=== PATIENT | female | born 1985 | race Caucasian/White ===

== ENCOUNTER → 2017-09-03 | Outpatient (REF) | payer OTHER ==
[2017-09-03 16:19] LABS: BASO # 0.1 10^3/uL (0.0-0.2); BASO % 0.9 % (0.0-1.0); EOS # 0.4 10^3/uL (0.0-0.50); EOS % 3.2 % (0.0-3.0); IMMATURE GRANULOCYTE % 0.3 % (0-0); LYMPH # 2.8 10^3/uL (1.5-4.5); LYMPH % 24.5 % (24.0-44.0); MEAN CORPUSCULAR HGB CONC 34.3 g/dl (32.0-36.5); MEAN CORPUSCULAR VOLUME 93.2 fl (80.0-96.0); MONO # 1.1 10^3/uL (0.0-0.8); MONO % 9.3 % (0.0-5.0); NEUTROPHILS % 61.8 % (36.0-66.0); PLATELET COUNT, AUTOMATED 381 10^3/uL (150-450); RED CELL DISTRIBUTION WIDTH 11.5 % (11.5-14.5); WHITE BLOOD COUNT 11.2 10^3/uL (4.0-10.0)
[2017-09-03 16:36] LABS: ALBUMIN 3.7 GM/DL (3.2-5.2); ALBUMIN/GLOBULIN RATIO 1.28 (1.00-1.93); ALKALINE PHOSPHATASE 48 U/L (45-117); ALT/SGPT 20 U/L (12-78); ANION GAP 7 MEQ/L (8-16); AST/SGOT 10 U/L (7-37); BILIRUBIN,TOTAL 0.2 MG/DL (0.2-1.0); BLOOD UREA NITROGEN 15 MG/DL (7-18); CALCIUM LEVEL 8.8 MG/DL (8.5-10.1); CARBON DIOXIDE LEVEL 29 MEQ/L (21-32); CHLORIDE LEVEL 99 MEQ/L (98-107); GLOMERULAR FILTRATION RATE > 60.0 (>60); GLUCOSE, FASTING 212 MG/DL (70-105); POTASSIUM SERUM 4.3 MEQ/L (3.5-5.1); SODIUM LEVEL 135 MEQ/L (136-145); TOTAL PROTEIN 6.6 GM/DL (6.4-8.2)
[2017-09-04 15:38] LABS: CREATININE, SERUM 1.1 MG/DL (0.6-1.0); TOTAL VOLUME, URINE 4200 ML
[2017-09-04 16:57] LABS: CREATININE CLEARANCE, URINE 101.8 ML/MIN (75-115)
[2017-09-05 11:08] LABS: HBsAg Prenatal NEGATIVE (NEGATIVE)
== END ==
LOC: M LABDRAW1 15:32
PROVIDERS: ATTEND Obstetrics & Gynecology
DX: Z36.89 Encounter for other specified antenatal screening (principal); Z3A.08 8 weeks gestation of pregnancy

== ENCOUNTER → 2017-09-11 | Outpatient (REF) | payer OTHER | LOC: M LAB REF 17:03 | PROVIDERS: ATTEND Advanced Practice Midwife | DX: Z34.81 Encounter for supervision of other normal pregnancy, first trimester (principal) ==

== ENCOUNTER → 2017-12-24 | Outpatient (REF) | payer OTHER ==
[2017-12-24 13:53] LABS: HEMATOCRIT 36.7 % (36.0-47.0); HEMOGLOBIN 12.2 g/dl (12.0-16.0); MEAN CORPUSCULAR HEMOGLOBIN 30.7 pg (27.0-33.0); MEAN CORPUSCULAR HGB CONC 33.2 g/dl (32.0-36.5); MEAN CORPUSCULAR VOLUME 92.4 fl (80.0-96.0); PLATELET COUNT, AUTOMATED 308 10^3/uL (150-450); RED BLOOD COUNT 3.97 10^6/uL (4.00-5.40); RED CELL DISTRIBUTION WIDTH 12.2 % (11.5-14.5); WHITE BLOOD COUNT 12.8 10^3/uL (4.0-10.0)
[2017-12-24 14:10] LABS: ESTIMATED AVERAGE GLUCOSE 151 MG/DL (60-110); HEMOGLOBIN A1c 6.9 %
== END ==
LOC: M LABDRAW1 09:06
DX: O24.012 Pre-existing type 1 diabetes mellitus, in pregnancy, second trimester (principal); Z3A.00 Weeks of gestation of pregnancy not specified

== ENCOUNTER → 2018-01-01 | Outpatient (REF) | payer OTHER ==
[2018-01-01 13:57] LABS: APPEARANCE, URINE MANUAL CLEAR (CLEAR); BILIRUBIN, URINE MANUAL NEGATIVE (NEGATIVE); COLOR, URINE MANUAL YELLOW (YELLOW); GLUCOSE, URINE (UA) MANUAL 4+(1000 MG/DL) mg/dL (NEGATIVE); KETONE, URINE MANUAL NEGATIVE (NEGATIVE); NITRITE, URINE MANUAL NEGATIVE (NEGATIVE); PROTEIN, URINE MANUAL NEGATIVE (NEGATIVE); SPECIFIC GRAVITY,URINE MANUAL 1.005 (1.002-1.035); UROBILINOGEN, URINE MANUAL NORMAL (NORMAL)
[2018-01-01 13:58] LABS: BLOOD URINE MANUAL NEGATIVE (NEGATIVE); LEUKOCYTE ESTERASE, URINE MAN NEGATIVE (NEGATIVE); MICROSCOPIC INDICATED? MAN YES (NO)
[2018-01-01 14:06] LABS: RBC, URINE NONE SEEN /hpf (0-3); SQUAMOUS EPITHELIAL CELL URINE SMALL AMOUNT /hpf (SMALL AMT)
[2018-01-01 14:07] LABS: BACTERIA, URINE SMALL AMOUNT; HYALINE CAST, URINE NONE SEEN /lpf (0-1); MICROSCOPIC EXAM PERFORMED
== END ==
LOC: M LAB REF 13:25
DX: O24.012 Pre-existing type 1 diabetes mellitus, in pregnancy, second trimester (principal)

== ENCOUNTER 2018-02-27 12:16 | Outpatient (CLI) | payer OTHER ==
[2018-02-27 13:46] LABS: BEDSIDE GLUCOSE 93 MG/DL (70-105)
== END 2018-02-27 15:20 | disposition home or self-care (01) ==
LOC: M LDO 12:16
DX: O24.913 Unspecified diabetes mellitus in pregnancy, third trimester (principal); O36.8331 Maternal care for abnormalities of the fetal heart rate or rhythm, third trimester, fetus 1; Z3A.33 33 weeks gestation of pregnancy
CPT/HCPCS: 76815

== ENCOUNTER → 2018-03-11 | Outpatient (REF) | payer OTHER | LOC: M LAB REF 13:30 | DX: Z3A.35 35 weeks gestation of pregnancy (principal) ==

== ENCOUNTER 2018-03-14 11:02 | Inpatient (IN) | payer OTHER ==
[2018-03-14] MEDS ORDERED: LR 1,000 ML IV ×2 (11:55→20:11)
[2018-03-14 12:25] LABS: BEDSIDE GLUCOSE 97 MG/DL (70-105)
[2018-03-14 12:40] LABS: HEMATOCRIT 37.7 % (36.0-47.0); HEMOGLOBIN 12.8 g/dl (12.0-15.5); MEAN CORPUSCULAR HEMOGLOBIN 30.5 pg (27.0-33.0); PLATELET COUNT, AUTOMATED 261 10^3/uL (150-450); RED BLOOD COUNT 4.19 10^6/uL (4.00-5.40); RED CELL DISTRIBUTION WIDTH 12.3 % (11.5-14.5); WHITE BLOOD COUNT 13.4 10^3/uL (4.0-10.0)
[2018-03-14] MEDS ORDERED: INSULIN IV RATE CHANGE DOCUMENTATION ML/HR XX (12:45)
[2018-03-14] MEDS ORDERED: D5W/0.9% SODIUM CHLORIDE 1,000 ML IV (13:00)
[2018-03-14] MEDS: miSOPROStol 50 MCG 1/2 TAB (S0191) SL ×2 (13:24→17:35)
[2018-03-14] MEDS: NS 1,000 ML IV ×3 (13:24→22:45)
[2018-03-14 13:42] LABS: BEDSIDE GLUCOSE 59 MG/DL (70-105)
[2018-03-14 13:46] LABS: BEDSIDE GLUCOSE 54 MG/DL (70-105)
[2018-03-14 14:15] LABS: BEDSIDE GLUCOSE 98 MG/DL (70-105)
[2018-03-14 15:16] LABS: BEDSIDE GLUCOSE 80 MG/DL (70-105)
[2018-03-14] MEDS: PENICILLIN G POTASSIUM IV 5 MU in D5W MINI-BAG PLUS 100 ML IV (16:21)
[2018-03-14 16:42] LABS: BEDSIDE GLUCOSE 73 MG/DL (70-105)
[2018-03-14 17:12] LABS: BEDSIDE GLUCOSE 81 MG/DL (70-105)
[2018-03-14 18:07] LABS: BEDSIDE GLUCOSE 92 MG/DL (70-105)
[2018-03-14] MEDS ORDERED: TERBUTALINE SULFATE 1 MG/ML VIAL (J3105) As Ordered (18:42)
[2018-03-14] MEDS ORDERED: BICITRA 30ML SOLN UDC As Ordered (18:46)
[2018-03-14] MEDS ORDERED: ceFAZolin 1GM INJ (J0690 PER 500MG) As Ordered (18:46)
[2018-03-14] MEDS: BICITRA 30ML SOLN UDC PO (18:56)
[2018-03-14] MEDS: TERBUTALINE SULFATE 1 MG/ML VIAL (J3105) SC (18:57)
[2018-03-14] MEDS ORDERED: fentaNYL 100 MCG/2 ML INJECTION (J3010) As Ordered (19:06)
[2018-03-14] MEDS ORDERED: MORPHINE PRES-FREE INJ 10 MG/10 ML VIAL (J2274) As Ordered (19:06)
[2018-03-14] MEDS ORDERED: NALBUPHINE HCL 10 MG/ML AMP (J2300) IV (19:11)
[2018-03-14] MEDS ORDERED: METOCLOPRAMIDE INJ 10MG/2ML VIAL (J2765) IV ×2 (19:11→21:15)
[2018-03-14] MEDS ORDERED: ONDANSETRON 4MG/2ML VIAL (J2405) IV ×3 (19:11→21:15)
[2018-03-14] MEDS ORDERED: NALOXONE INJ 0.4 MG/1 ML VIAL (J2310) IV ×2 (19:11)
[2018-03-14] MEDS ORDERED: OXYTOCIN INJ 10 UNITS/ML VIAL (J2590) As Ordered ×4 (19:31→19:32)
[2018-03-14] MEDS ORDERED: PHENYLephrine HCL 500 MCG/5 ML (100MCG/ML) SYRINGE (J2370) As Ordered (19:31)
[2018-03-14] MEDS ORDERED: ONDANSETRON 4MG/2ML VIAL (J2405) As Ordered (19:32)
[2018-03-14] MEDS ORDERED: KETOROLAC 60 MG/2 ML VIAL (J1885) As Ordered (19:45)
[2018-03-14] MEDS ORDERED: PENICILLIN G POTASSIUM IV 2.5 MU in APPROPRIATE DILUENT 1 EA IV (20:00)
[2018-03-14] MEDS ORDERED: PERCOCET 5MG/325MG TAB PO (20:15)
[2018-03-14 20:21] LABS: BEDSIDE GLUCOSE 193 MG/DL (70-105)
[2018-03-14] MEDS: INSULIN HUMAN REGULAR 100 UNITS in NS 99 ML IV (20:37)
[2018-03-14] MEDS ORDERED: fentaNYL 100 MCG/2 ML INJECTION (J3010) IV (21:15)
[2018-03-14] MEDS: ceFAZolin SOD 1 GM in D5W MINI-BAG PLUS 50 ML IV (21:45)
[2018-03-14] MEDS: LR 1,000 ML IV (21:45)
[2018-03-14 21:55] LABS: BEDSIDE GLUCOSE 150 MG/DL (70-105)
[2018-03-14] MEDS ORDERED: GLUCOSE 4 GM CHEW TABLET PO (22:15)
[2018-03-14] MEDS ORDERED: GLUCAGON FOR INJ 1 MG VIAL (J1610) SC (22:15)
[2018-03-14] MEDS ORDERED: DEXTROSE 50% 50 ML SYRINGE IV (22:15)
[2018-03-14] MEDS: RHOGAM 300 MCG (1500 IU) INJ (J2790) IM (22:23)
[2018-03-14] MEDS: MEASLES,MUMPS,RUBELLA VACCINE INJ (MMR-II) (90707) SC (22:23)
[2018-03-14 23:54] LABS: BEDSIDE GLUCOSE 151 MG/DL (70-105)
[2018-03-15] MEDS: KETOROLAC 30 MG/ML VIAL (J1885) IV ×3 (01:40→15:06)
[2018-03-15 01:45] LABS: BEDSIDE GLUCOSE 174 MG/DL (70-105)
[2018-03-15 04:00] LABS: BEDSIDE GLUCOSE 213 MG/DL (70-105)
[2018-03-15 06:44] LABS: BEDSIDE GLUCOSE 212 MG/DL (70-105)
[2018-03-15] MEDS: NS 1,000 ML IV ×3 (06:45→22:45)
[2018-03-15] MEDS ORDERED: HumaLOG INSULIN (NovoLOG) PER UNIT SC (07:30)
[2018-03-15 07:38] LABS: HEMATOCRIT 31.5 % (36.0-47.0); MEAN CORPUSCULAR HEMOGLOBIN 31.3 pg (27.0-33.0); MEAN CORPUSCULAR HGB CONC 33.7 g/dl (32.0-36.5); MEAN CORPUSCULAR VOLUME 92.9 fl (80.0-96.0); PLATELET COUNT, AUTOMATED 207 10^3/uL (150-450); RED BLOOD COUNT 3.39 10^6/uL (4.00-5.40); RED CELL DISTRIBUTION WIDTH 12.6 % (11.5-14.5); WHITE BLOOD COUNT 14.1 10^3/uL (4.0-10.0)
[2018-03-15 07:45] LABS: HEMOGLOBIN 10.6 g/dl (12.0-15.5)
[2018-03-15] MEDS: PRENATAL VITAMINS CHEWABLE TABLET PO (09:09)
[2018-03-15 11:39] LABS: BEDSIDE GLUCOSE 237 MG/DL (70-105)
[2018-03-15] MEDS: IBUPROFEN 800 MG TAB PO (21:44)
[2018-03-15] MEDS: PERCOCET 5MG/325MG TAB PO (21:52)
[2018-03-15] MEDS: DOCUSATE SODIUM 100 MG CAP PO (23:14)
[2018-03-16] MEDS: PERCOCET 5MG/325MG TAB PO (01:42)
[2018-03-16] MEDS: IBUPROFEN 800 MG TAB PO (06:29)
[2018-03-16] MEDS: NS 1,000 ML IV (06:45)
[2018-03-16] MEDS: PRENATAL VITAMINS CHEWABLE TABLET PO (07:44)
== END 2018-03-16 12:00 | disposition home or self-care (01) | DRG 540 ==
LOC: M LDI 11:02 → M OBS 21:33
PROVIDERS: Specialist
PROC: 10D00Z1 Extraction of Products of Conception, Low, Open Approach (ICD-10-PCS; principal; 2018-03-14 07:29)
DX: O76 Abnormality in fetal heart rate and rhythm complicating labor and delivery (principal); O24.02 Pre-existing type 1 diabetes mellitus, in childbirth; O40.3XX0 Polyhydramnios, third trimester, not applicable or unspecified; Z37.0 Single live birth; Z3A.36 36 weeks gestation of pregnancy; E10.9 Type 1 diabetes mellitus without complications; O69.82X0 Labor and delivery complicated by other cord entanglement, without compression, not applicable or unspecified

== ENCOUNTER → 2020-01-23 | Outpatient (REF) | payer OTHER ==
[~2020-01-23] MED LIST: COLA100C5 PO; FOLI800C PO; IBUP-1114 PO; INSUH10VL INJ; INSUH10VL SC; PERC5TAB12 PO; PRENTAB9 PO
[2020-01-23 14:45] LABS: ALBUMIN 3.8 GM/DL (3.2-5.2); ALT/SGPT 24 U/L (12-78); BILIRUBIN,TOTAL 0.6 MG/DL (0.2-1.0); BLOOD UREA NITROGEN 10 MG/DL (7-18); CARBON DIOXIDE LEVEL 30 MEQ/L (21-32); CHLORIDE LEVEL 102 MEQ/L (98-107); CHOLESTEROL LEVEL 219 MG/DL (<200); CHOLESTEROL RISK RATIO 1.542 (<5); CREATININE FOR GFR 0.72 MG/DL (0.55-1.30); FREE T4 1.08 NG/DL (0.76-1.46); GLOMERULAR FILTRATION RATE > 60.0 (>60); GLUCOSE, FASTING 200 MG/DL (70-100); HDL CHOLESTEROL 142 MG/DL (>40); LDL CHOLESTEROL 67 MG/DL (<100); NON-HDL-C 77 MG/DL; POTASSIUM SERUM 4.1 MEQ/L (3.5-5.1); SODIUM LEVEL 136 MEQ/L (136-145); TOTAL PROTEIN 7.2 GM/DL (6.4-8.2); TRIGLYCERIDES LEVEL 51 MG/DL (<150)
[2020-01-23 14:48] LABS: THYROID PEROXIDASE ANTIBODY 33.5 U/ML (<60.0); TOTAL 25(OH) VITAMIN D 21.9 NG/ML (30.0-100.0)
[2020-01-23 15:07] LABS: CREATININE, URINE 14.3 MG/DL; MALB URINE SIEMENS < 5.0 MG/L; MAU/CREAT RATIO 34.9 MCG/MG (0.0-30.0)
== END ==
LOC: M LABDRAW1 14:08
PROVIDERS: ATTEND Physician Assistant
DX: E10.65 Type 1 diabetes mellitus with hyperglycemia (principal); E55.9 Vitamin D deficiency, unspecified

== ENCOUNTER → 2020-03-11 | Outpatient (REF) | payer OTHER | LOC: M SFHCWAGY 17:10 | PROVIDERS: ATTEND Advanced Practice Midwife | DX: Z12.4 Encounter for screening for malignant neoplasm of cervix (principal); Z01.419 Encounter for gynecological examination (general) (routine) without abnormal findings ==

== ENCOUNTER → 2021-07-25 | Outpatient (CLI) | payer OTHER ==
[2021-07-25 16:56] LABS: MALB URINE SIEMENS 6.8 MG/L; MAU/CREAT RATIO 20.6 MCG/MG (0.0-30.0)
[2021-07-25 17:02] LABS: ALBUMIN 3.7 GM/DL (3.2-5.2); ALT/SGPT 26 U/L (12-78); BILIRUBIN,TOTAL 0.4 MG/DL (0.2-1.0); BLOOD UREA NITROGEN 12 MG/DL (7-18); CARBON DIOXIDE LEVEL 30 MEQ/L (21-32); CHLORIDE LEVEL 100 MEQ/L (98-107); CHOLESTEROL LEVEL 190 MG/DL (<200); CHOLESTEROL RISK RATIO 1.666 (<5); CREATININE FOR GFR 0.82 MG/DL (0.55-1.30); FREE T4 1.18 NG/DL (0.76-1.46); GLOMERULAR FILTRATION RATE > 60.0 (>60); GLUCOSE, FASTING 247 MG/DL (70-100); HDL CHOLESTEROL 114 MG/DL (>40); LDL CHOLESTEROL 61 MG/DL (<100); NON-HDL-C 76 MG/DL; POTASSIUM SERUM 3.9 MEQ/L (3.5-5.1); SODIUM LEVEL 136 MEQ/L (136-145); THYROID PEROXIDASE ANTIBODY 33.3 U/ML (<60.0); THYROID STIMULATING HORMONE 0.963 uIU/ML (0.358-3.740); TOTAL 25(OH) VITAMIN D 28.7 NG/ML (30.0-100.0); TOTAL PROTEIN 7.4 GM/DL (6.4-8.2); TRIGLYCERIDES LEVEL 75 MG/DL (<150)
== END ==
LOC: M WUC 11:13
PROVIDERS: ATTEND Physician Assistant
DX: E10.65 Type 1 diabetes mellitus with hyperglycemia (principal)

== ENCOUNTER → 2022-02-27 | Outpatient (REF) | payer BC | LOC: M PLALAB 16:09 | PROVIDERS: ATTEND Obstetrics & Gynecology | DX: Z12.4 Encounter for screening for malignant neoplasm of cervix (principal) | CPT/HCPCS: 87624; G0123 ==

== ENCOUNTER → 2022-03-28 | Outpatient (REF) | payer BC | LOC: M LAB REF 16:11 | PROVIDERS: ATTEND Surgery | DX: L72.3 Sebaceous cyst (principal) ==

== ENCOUNTER → 2023-02-05 | Outpatient (CLI) | payer BC ==
[2023-02-05 13:26] LABS: CREATININE, URINE 29.2 MG/DL
[2023-02-05 13:27] LABS: MALB URINE SIEMENS < 3.0 MG/L; MAU/CREAT RATIO 10.2 MCG/MG (0.0-30.0)
[2023-02-05 13:28] LABS: ALBUMIN 3.8 G/DL (3.2-5.2); ALKALINE PHOSPHATASE 52 U/L (46-116); ALT/SGPT 18 U/L (7.0-40); AST/SGOT 20 U/L (<34); BILIRUBIN,TOTAL 0.7 MG/DL (0.3-1.2); BLOOD UREA NITROGEN 11 MG/DL (9-23); CALCIUM LEVEL 8.7 MG/DL (8.5-10.1); CARBON DIOXIDE LEVEL 27 MMOL/L (20-31); CHLORIDE LEVEL 98 MMOL/L (98-107); CHOLESTEROL LEVEL 216 MG/DL (<200); CHOLESTEROL RISK RATIO 1.56 (<5); CREATININE FOR GFR 0.57 MG/DL (0.55-1.30); GLOMERULAR FILTRATION RATE > 60.0 (>60); GLUCOSE, FASTING 294 MG/DL (60-100); HDL CHOLESTEROL 138.4 MG/DL (>40); LDL CHOLESTEROL 67.6 MG/DL (<100); NON-HDL-C 77.6 MG/DL; POTASSIUM SERUM 4.8 MMOL/L (3.5-5.1); SODIUM LEVEL 131 MMOL/L (136-145); THYROID STIMULATING HORMONE 1.082 uIU/ML (0.55-4.78); TOTAL 25(OH) VITAMIN D 29.6 NG/ML (20.0-100.0); TRIGLYCERIDES LEVEL 50 MG/DL (<150)
== END ==
LOC: M WUC 09:32
PROVIDERS: ATTEND Physician Assistant
DX: E10.65 Type 1 diabetes mellitus with hyperglycemia (principal); E55.9 Vitamin D deficiency, unspecified

== ENCOUNTER → 2023-09-03 | Outpatient (REF) | payer BC | LOC: M SFHCWAGY 15:30 | PROVIDERS: ATTEND Obstetrics & Gynecology | DX: Z12.4 Encounter for screening for malignant neoplasm of cervix (principal) | CPT/HCPCS: 87624; G0123 ==

== ENCOUNTER → 2024-06-03 | Outpatient (REF) | payer OTHER ==
[2024-06-03 13:13] LABS: APPEARANCE, URINE CLEAR (CLEAR); BACTERIA, URINE AUTO NEGATIVE (NEGATIVE); BILIRUBIN, URINE AUTO NEGATIVE (NEGATIVE); BLOOD, URINE BLOOD 3+ (NEGATIVE); COLOR, URINE STRAW (YELLOW); GLUCOSE, URINE (UA) AUTO 3+ mg/dL (NEGATIVE); KETONE, URINE AUTO TRACE mg/dL (NEGATIVE); LEUKOCYTE ESTERASE, URINE AUTO 3+ (NEGATIVE); NITRITE, URINE AUTO NEGATIVE (NEGATIVE); PROTEIN, URINE AUTO NEGATIVE (NEGATIVE); RBC, URINE AUTO 1 /HPF (0-3); SPECIFIC GRAVITY URINE AUTO 1.002 (1.002-1.035); SQUAMOUS EPITHELIAL CELL UR AU 0 /HPF (0-6); UROBILINOGEN, URINE AUTO 0.2 mg/dL (0.0-2.0); WBC, URINE AUTO 5 /HPF (0-3)
== END ==
LOC: M LAB REF 12:16
PROVIDERS: ATTEND Physician Assistant Medical
DX: N39.0 Urinary tract infection, site not specified (principal)

== ENCOUNTER → 2024-10-06 | Outpatient (REF) | payer OTHER ==
[2024-10-10 14:17] LABS: HPV APTIMA Not Detected (Not Detected)
== END ==
LOC: M SFHCWAGY 13:01
PROVIDERS: ATTEND Obstetrics & Gynecology
DX: Z01.419 Encounter for gynecological examination (general) (routine) without abnormal findings (principal); Z77.9 Other contact with and (suspected) exposures hazardous to health
CPT/HCPCS: 87624; G0123

== ENCOUNTER → 2025-01-12 | Outpatient (CLI) | payer OTHER ==
[2025-01-12 11:48] LABS: BASO # 0.1 10^3/uL (0.0-0.2); BASO % 0.8 % (0.0-1.0); EOS # 0.2 10^3/uL (0.0-0.5); EOS % 1.9 % (0.0-3.0); HEMATOCRIT 42.8 % (36.0-47.0); HEMOGLOBIN 14.4 g/dl (12.0-15.5); LYMPH # 3.2 10^3/uL (1.5-5.0); LYMPH % 24.9 % (24.0-44.0); MEAN CORPUSCULAR HEMOGLOBIN 32.4 pg (27.0-33.0); MEAN CORPUSCULAR HGB CONC 33.6 g/dl (32.0-36.5); MEAN CORPUSCULAR VOLUME 96.2 fl (80.0-96.0); MONO % 7.9 % (2.0-8.0); NEUTROPHILS # 8.3 10^3/uL (1.5-8.5); PLATELET COUNT, AUTOMATED 392 10^3/uL (150-450); RED BLOOD COUNT 4.45 10^6/uL (4.00-5.40); WHITE BLOOD COUNT 12.9 10^3/uL (4.0-10.0)
[2025-01-12 12:05] LABS: CREATININE, URINE 139.2 MG/DL; MAU/CREAT RATIO 14.3 MCG/MG (0.0-30.0)
[2025-01-12 12:10] LABS: HEMOGLOBIN A1c 8.5 % (4.0-6.0)
[2025-01-12 12:18] LABS: ALBUMIN 3.9 G/DL (3.2-5.2); ALKALINE PHOSPHATASE 53 U/L (35-104); ALT/SGPT 23 U/L (7.0-40); AST/SGOT 17 U/L (<34); BILIRUBIN,TOTAL 0.5 MG/DL (0.3-1.2); BLOOD UREA NITROGEN 16 MG/DL (9-23); CARBON DIOXIDE LEVEL 29 MMOL/L (20-31); CHLORIDE LEVEL 104 MMOL/L (98-107); CHOLESTEROL LEVEL 232 MG/DL (<200); CHOLESTEROL RISK RATIO 1.86 (<5); CREATININE FOR GFR 0.67 MG/DL (0.55-1.30); GLOMERULAR FILTRATION RATE > 60.0 (>60); GLUCOSE, FASTING 247 MG/DL (60-100); HDL CHOLESTEROL 124.5 MG/DL (>40); LDL CHOLESTEROL 93.3 MG/DL (<100); NON-HDL-C 107.5 MG/DL; POTASSIUM SERUM 4.7 MMOL/L (3.5-5.1); SODIUM LEVEL 138 MMOL/L (136-145); TOTAL PROTEIN 7.2 G/DL (5.7-8.2); TRIGLYCERIDES LEVEL 71 MG/DL (<150)
[2025-01-12 12:19] LABS: THYROID STIMULATING HORMONE 1.513 uIU/ML (0.55-4.78); TOTAL 25(OH) VITAMIN D 27.4 NG/ML (20.0-100.0)
[2025-01-12 12:20] LABS: FREE T4 1.32 NG/DL (0.89-1.76)
== END ==
LOC: M PLALAB 08:09
PROVIDERS: ATTEND Physician Assistant
DX: E10.65 Type 1 diabetes mellitus with hyperglycemia (principal); E55.9 Vitamin D deficiency, unspecified